=== PATIENT | male | born 1965 | race Two or more races ===

== ENCOUNTER 2020-10-04 17:57 | Emergency (ER) | payer MEDICAID ==
[~2020-10-04] VITALS: Ht 172.7 cm; Wt 72.7 kg
[2020-10-04] MEDS ORDERED: LORazepam 1 MG TABLET GT ONE (20:00)
[2020-10-04] MEDS ORDERED: QUEtiapine FUMARATE 100 MG TABLET GT ONE (20:00)
[2020-10-04 23:21] LABS: EOSINOPHILS % (AUTO) 1.8 % (1.0-6.0); HEMATOCRIT 36.7 % (41-53); HEMOGLOBIN 12.3 g/dL (13.5-17.5); LYMPHOCYTES # (AUTO) 1.6 K/uL (1.0-4.8); LYMPHOCYTES % (AUTO) 21.7 % (22.0-44.0); MEAN CORPUSCULAR HEMOGLOBIN 29.5 pg (26.0-34.0); MEAN CORPUSCULAR HGB CONC 33.5 G/dL (31.0-37.0); MEAN CORPUSCULAR VOLUME 88 fL (80-100); MONOCYTES # (AUTO) 0.6 K/uL (0.1-1.0); MONOCYTES % (AUTO) 8.7 % (2.0-9.0); NEUTROPHILS # (AUTO) 4.9 K/uL (1.8-7.7); NEUTROPHILS % (AUTO) 66.8 % (40.0-70.0); PLATELET COUNT (AUTO) 282 K/uL (150-450); RED BLOOD CELL COUNT(AUTO) 4.17 MIL/uL (4.50-5.90); RED CELL DISTRIBUTION WIDTH 13.9 % (11.5-14.5)
[2020-10-04 23:30] LABS: ANION GAP 4 mmol/L (8-16); CALCIUM, TOTAL 9.2 mg/dL (8.8-10.5); CARBON DIOXIDE 29 mmol/L (22-29); CHLORIDE 103 mmol/L (98-107); CREATININE 0.97 mg/dL (0.60-1.30); GLOMERULAR FILTR. RATE CALC > 60 mL/min (>60); GLUCOSE,RANDOM 112 mg/dL (70-110); POTASSIUM 3.4 mmol/L (3.5-5.1); SODIUM SERUM 136 mmol/L (136-145); UREA NITROGEN, BLOOD 24 mg/dL (7-18)
[2020-10-04] MEDS ORDERED: GLYC2TAB21 PO (23:35)
[2020-10-04] MEDS ORDERED: IPRA4AER IH (23:35)
[2020-10-04] MEDS ORDERED: SENN-123 GT (23:35)
[2020-10-04] MEDS ORDERED: MELA5TAB3 GT (23:35)
[2020-10-04] MEDS ORDERED: LORA-1000 PO (23:35)
[2020-10-04] MEDS ORDERED: CARV12 PO (23:35)
[2020-10-04] MEDS ORDERED: QUET25TA GT (23:35)
[2020-10-04] MEDS ORDERED: ACET-2865 GT (23:35)
[2020-10-04] MEDS ORDERED: LACT30L PO (23:35)
[2020-10-04] MEDS ORDERED: QUET100T GT (23:35)
[2020-10-04 23:37] LABS: LACTIC ACID 0.8 mmol/L (0.4-2.0)
[2020-10-04 23:38] LABS: TROPONIN I < 0.02 ng/mL (0.00-0.05)
[2020-10-04 23:42] LABS: COVID AG,FIA SOURCE NASOPHARYNGEAL
[2020-10-04 23:42] LABS: B-TYPE NATRIURETIC PEPTIDE 11 pg/mL (0-100)
[2020-10-04 23:44] LABS: ALANINE AMINOTRANSFERASE 57 U/L (12-78); ALBUMIN 3.7 g/dL (3.4-5.0); ALKALINE PHOSPHATASE 141 U/L (46-116); ASPARTATE AMINOTRANSFERASE 32 U/L (15-37); BILIRUBIN,TOTAL 0.9 mg/dL (0.1-1.0); LIPASE 136 U/L (73-393); TOTAL PROTEIN, SERUM 7.8 g/dL (6.4-8.2)
[2020-10-04 23:49] LABS: AMMONIA < 10 umol/L (11-32)
[2020-10-05] MEDS ORDERED: POTASSIUM CHLORIDE 10% 40 MEQ/30 ML LIQUID UDCUP GT ONE (00:15)
[2020-10-05 01:00] VITALS: BP 138/76
== END 2020-10-05 03:19 | disposition home or self-care (01) ==
LOC: EMS 18:03
DX: E87.6 Hypokalemia (principal); Z20.828 Contact with and (suspected) exposure to other viral communicable diseases
CPT/HCPCS: 70450; 83605; 87426; 93005; 71045-TC